=== PATIENT | female | born 1945 | race Two or more races ===

== ENCOUNTER → 2021-03-01 | Outpatient (CLI) | payer MEDICARE ==
--- NOTE | 2021-03-01 18:13 | CT ---
EXAMINATION TYPE: CT angio chest DATE OF EXAM: 03/01/2021 5:15 PM COMPARISON: Same-day radiograph. HISTORY: Dyspnea. CT DLP: 321.6 mGycm Automated exposure control for dose reduction was used. CONTRAST: CTA scan of the thorax is performed with IV Contrast, patient injected with 100 mL of Isovue 370, pul monary embolism protocol. MIP images are created and reviewed. FINDINGS: LUNGS: There is moderate to severe centrilobular emphysema. There is associated mild hazy opacity, co nsistent with atelectasis. There is a 1.4 cm irregular right lower lobe nodule. There is also a 4 mm fissural nodule in the superior right lower lobe. No significant infiltrate, pleural effusion or pneu mothorax. MEDIASTINUM: There is satisfactory enhancement of the pulmonary artery and its branches, there is no CT evidence for pulmonary embolism. There are no greater than 1 cm hilar or mediastinal lymph nodes. No pericardial effusion is seen. There is moderate to advanced thoracic aorta and coronary atheros clerotic disease. Prior cardiothoracic postsurgical changes seen. OTHER: No additional significant abnormality is seen. IMPRESSION: SUSPICIOUS 1.4 CM RIGHT LOWER LOBE NODULE. RECOMMEND FURTHER EVALUATION WITH TISSUE ACQUISITION AND/O R PET/CT. OTHERWISE 1-3 MONTHS FOLLOW-UP. ADDITIONAL 0.4 CM RIGHT LOWER LOBE NODULE. ATTENTION ON FOLLOW-UP. OTHERWISE NO ACUTE PE OR OTHER CARDIOPULMONARY ABNORMALITY.
== END | disposition home or self-care (01) ==
LOC: RADCTMAIN 15:48
PROVIDERS: ATTEND Internal Medicine
DX: R91.1 Solitary pulmonary nodule (principal)
CPT/HCPCS: 82565; 84520; 71275; 36415; Q9967

== ENCOUNTER → 2021-03-23 | Outpatient (CLI) | payer MEDICARE ==
--- NOTE | 2021-03-24 11:31 | ECHOF ---
Referral Reason:R06.09 Dyspnea MEASUREMENTS -------- HEIGHT: 157.5 cm WEIGHT: 73.0 kg BP: IVSd: 1.0 cm (0.6 - 1.1) LVIDd: 4.4 cm (3.9 - 5.3) LVPWd: 1.6 cm (0.6 - 1.1) EDV(Teich): 87 ml IVSs: 2.1 cm LVIDs: 2.6 cm LVPWs: 1.8 cm %IVS Thck: 104 % ESV(Teich): 24 ml EF(Teich): 73 % %FS: 42 % SV(Teich): 63 ml RVIDd: 2.4 cm (< 3.3) IVC: 16.11 mm LALs A4C: 4.4 cm LAAs A4C: 11.4 cm LAESV A-L A4C: 25 ml LAESV MOD A4C: 21 ml LALs A2C: 5.1 cm LAAs A2C: 20.8 cm LAESV A-L A2C: 72 ml LAESV MOD A2C: 64 ml LAESV(A-L): 46 ml LAESV Index (A-L): 26.28 ml/m Ao Diam: 3.1 cm (2.0 - 3.7) LA Diam: 2.8 cm (2.7 - 3.8) AV Cusp: 2.4 cm (1.5 - 2.6) EPSS: 0.3 cm MV E [place]: 0.85 m/s MV DecT: 288 ms MV Dec [place]: 2.9 m/s MV A [place]: 0.97 m/s MV E/A Ratio: 0.88 MV PHT: 84 ms MR Vmax: 2.66 m/s MR maxP.21 mmHg AV Vmax: 1.39 m/s AV maxP.70 mmHg TR Vmax: 1.28 m/s TR maxP.51 mmHg RAP: 5.00 mmHg RVSP: 11.51 mmHg MV EF SLOPE: 48.48 mm/s (70 - 150) MV EXCURSION: 19.09 mm (> 18.000) FINDINGS -------- This was a technically good study. The left ventricular size is normal. There is mild concentric left ventricular hypertrophy. Overa ll left ventricular systolic function is normal with, an EF between 55 - 60 %. Normal LAP Grade 1 D iastolic Dysfunction. The right ventricle is normal in size. The left atrial size is normal. Normal LA size by volume 22+/-6 ml/m2. The right atrial size is normal. Aortic valve is trileaflet and is mildly thickened. The mitral valve is normal. The mitral valve leaflets are mildly thickened. Mild mitral regurgita tion is present. The tricuspid valve appears structurally normal. Mild tricuspid regurgitation present. Right vent ricular systolic pressure is normal at < 35 mmHg. There is no pulmonic regurgitation present. The aortic root size is normal. Normal inferior vena cava with normal inspiratory collapse consistent with estimated right atrial pre ssure of 5 mmHg. There is no pericardial effusion. CONCLUSIONS -------- 1. The left ventricular size is normal. 2. There is mild concentric left ventricular hypertrophy. 3. Overall left ventricular systolic function is normal with, an EF between 55 - 60 %. 4. Normal LAP Grade 1 Diastolic Dysfunction. 5. Aortic valve is trileaflet and is mildly thickened. 6. The mitral valve leaflets are mildly thickened. 7. Mild mitral regurgitation is present. 8. Mild tricuspid regurgitation present. 9. There is no pericardial effusion. [employer] ARCHITECT: Liz Navarrete RDCS
== END | disposition home or self-care (01) ==
LOC: RADECHMAIN 15:33
PROVIDERS: ATTEND Internal Medicine
DX: I08.1 Rheumatic disorders of both mitral and tricuspid valves (principal)
CPT/HCPCS: 93306

== ENCOUNTER → 2021-07-21 | Outpatient (CLI) | payer MEDICARE ==
--- NOTE | 2021-07-21 15:54 | CT ---
EXAMINATION TYPE: CT chest w con DATE OF EXAM: 07/21/2021 COMPARISON: CTA chest March 01, 2021 HISTORY: f/u nodules CT DLP: 384.2 mGycm. Automated Exposure Control for Dose Reduction was Utilized. TECHNIQUE: CT scan of the thorax is performed following with IV Contrast, patient injected with 100 mL of Isovue 300. FINDINGS: LUNGS: Moderate to advanced underlying emphysematous change greatest in the upper lungs is redemonstr ated. There is persistent suspicious spiculated nodule lateral right lung base measuring 2.1 x 1.2 cm current study image 48 stable or slightly larger versus recent prior. [id number]-ld-upttflqa scattered par enchymal fibrotic changes greatest in the upper lungs particularly periphery of the left upper lobe r edemonstrated. No new greater than 5 mm pulmonary nodules. No pleural effusion or pneumothorax. MEDIASTINUM: There are no new greater than 1 cm hilar or mediastinal lymph nodes. 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 No pericardial effusion. Stable mild cardi omegaly. Moderate mixed plaque in the descending aorta redemonstrated OTHER: Surgical changes medial aspect left breast with oil cyst is redemonstrated. Stable mild left-s ided breast skin thickening and axial image 24. Surgical clips left axilla redemonstrated. S-shaped s coliosis again seen. IMPRESSION: Stable or slightly larger spiculated 2.1 x 1.2 cm lateral right basilar nodule. Neoplasm cannot be excluded. Further investigation with PET CT is advised.
== END | disposition home or self-care (01) ==
LOC: RADCTMAIN 14:06
PROVIDERS: ATTEND Internal Medicine
DX: R91.1 Solitary pulmonary nodule (principal)
CPT/HCPCS: 82565; 84520; 71260; 36415; Q9967